=== PATIENT | male | born 1985 | race Caucasian/White ===

== ENCOUNTER 2016-06-24 19:09 | Emergency (ER) ==
[2016-06-24 19:14] VITALS: BP 122/84; TEMP 98.9; BMI 27.4
[2016-06-24] MEDS ORDERED: DECADRON 4 MG/ML SDV IM STA (19:22)
--- NOTE | 2016-06-24 19:24 | ED.PDOC ---
General ED Provider: Dr. ALLEN ARROYO Chief Complaint: Sore Throat Stated Complaint: sore throat, hurting all over, hurts to swallow. Time Seen by Physician: 19:22 Mode of Arrival: Walk-In Information Source: Patient Nursing and Triage Documentation Reviewed and Agree: Yes EENT Complaint Exam - Throat Complaint/Exam Symptoms Are: Still present Timimg: Constant Initial Severity: Mild Current Severity: Mild Aggravating: Reports: Eating Alleviating: Reports: None Associated Signs and Symptoms: Reports: Dysphagia, Nasal congestion. Denies: Fever, Drooling, Foreign body sensation, Chills, Cough, Wheezing, Hoarseness, Sinus discomfort, Difficulty breathing, Lethargy, Irritability, Decreased activity, Vomiting, Diarrhea, Decreased hearing, Ear drainage Uvula Midline: Yes Diamond-tonsillar Fluctuence: No Stridor Present: No Sinus Tenderness Present: No Tonsillar Hypertrophy Present: No Tonsillar Exudate Present: No Diamond-tonsillar Swelling Present: No Adenopathy Present: No Splenomegaly Present: No Differential Diagnoses: Influenza, Pharyngitis, URI Review of Systems - Review Of Systems Constitutional: Reports: Fever, Weakness Eyes: Reports: No symptoms Ears, Nose, Mouth, Throat: Reports: Throat pain Respiratory: Reports: No symptoms Cardiac: Reports: No symptoms GI: Reports: No symptoms : Reports: No symptoms Musculoskeletal: Reports: No symptoms Skin: Reports: No symptoms Neurological: Reports: No symptoms Endocrine: Reports: No symptoms Hematologic/Lymphatic: Reports: No symptoms All Other Systems: Reviewed and Negative Past Medical History - Past Medical History Previously Healthy: Yes Endocrine: Reports: None Cardiovascular: Reports: None Respiratory: Reports: None Hematological: Reports: None Gastrointestinal: Reports: None Genitourinary: Reports: None Neuro/Psych: Reports: None Musculoskeletal: Reports: None Cancer: Reports: None - Surgical History General Surgical History: Reports: Orthopedic (surgery on leg) - Family History Family History: Reports: None - Social History Smoking Status: Current every day smoker, Light tobacco smoker Smoking Cessation Counseling Time: > 3 min - 10 min Hx Substance Use: No Alcohol Screening: None Physical Exam - Physical Exam Appearance: Well-appearing, No pain distress, Well-nourished Eyes: STEPHAN, EOMI, Conjunctiva clear ENT: Erythema Respiratory: Airway patent, Breath sounds clear, Breath sounds equal, Respirations nonlabored Cardiovascular: RRR, Pulses normal, No rub, No murmur GI/: Soft, Nontender, No masses, Bowel sounds normal, No Organomegaly Musculoskeletal: Normal strength, ROM intact, No edema, No calf tenderness Skin: Warm, Dry, Normal color Neurological: Sensation intact, Motor intact, Reflexes intact, Cranial nerves intact, Alert, Oriented Psychiatric: Affect appropriate, Mood appropriate Critical Care Note - Critical Care Note Total Time (mins): 0 Course - Course Orders, Labs, Meds: Orders Category Date Time Status RAPID FLU A/B Stat LAB 06/24/16 19:22 Uncollected STREP SCREEN Stat LAB 06/24/16 19:22 Uncollected Dexamethasone 4 mg/ml Inj [Decadron 4 mg/ml Sdv] MEDS 06/24/16 19:22 Stat 4 mg IM ONCE STA Vital Signs: Temp Pulse Resp BP Pulse Ox 06/24/16 19:10 98.9 F 111 H 16 122/84 97 Departure - Departure Time of Disposition: 19:37 Disposition: HOME SELF-CARE Discharge Problem: Acute streptococcal pharyngitis Instructions: Strep Throat (ED) Condition: Good Pt referred to PMD for follow-up: No Additional Instructions: Take medications with food, Increase hydration Tylenol prn Prescriptions: Amoxicillin/Potassium Clav [Augmentin 500-125 mg Tab] 1 tab PO Q12HR #20 tablet Prednisone 10 mg PO BIDWM #14 tablet Allergies/Adverse Reactions: Allergies ciprofloxacin [From Cipro] Adverse Reaction (Verified 06/24/16 19:15) Home Medications: Ambulatory Orders Amoxicillin/Potassium Clav [Augmentin 500-125 mg Tab] 1 tab PO Q12HR #20 tablet 06/24/16 Prednisone 10 mg PO BIDWM #14 tablet 06/24/16 Disposition Discussed With: Patient
[2016-06-24 19:41] LABS: FLU INTERNAL QC INTERNAL QC VALID; RAPID FLU A NEGATIVE (NEGATIVE); RAPID FLU B NEGATIVE (NEGATIVE)
== END 2016-06-24 19:52 | disposition home or self-care (01) ==
LOC: ED 19:09
DX: J02.0 Streptococcal pharyngitis (principal); F17.210 Nicotine dependence, cigarettes, uncomplicated
CPT/HCPCS: 87804; 87880; 96372; 99282

== ENCOUNTER 2016-12-06 11:55 | Emergency (ER) ==
[2016-12-06 11:59] VITALS: BP 133/79; TEMP 98.9; BMI 25.9
--- NOTE | 2016-12-06 12:04 | ED.PDOC ---
General ED Provider: Dr. SOPHIE QUINONEZ Chief Complaint: Foot Pain/Injury Stated Complaint: foot pain Time Seen by Physician: 12:00 Mode of Arrival: Walk-In Information Source: Patient Exam Limitations: No limitations Nursing and Triage Documentation Reviewed and Agree: Yes Musculoskeletal Complaint Exam - Ankle/Foot Complaint/Exam Location of Injury: Reports: Right, Ankle, Foot Mechanism of Injury: Reports: Trauma (BLUNT FORCE ) Onset/Duration: TODAY Symptoms Are: Reports: Still present Onset of Pain: Reports: Immediate Initial Severity: Moderate Current Severity: Moderate Location: Reports: Discrete Character: Reports: Aching, Throbbing, Spasmodic Alleviating: Reports: Rest, Position Aggravating: Reports: Movement, Weight bearing, Prolonged standing Able to Bear Weight: Yes Associated Signs and Symptoms: Reports: Swelling. Denies: Redness, Bruising, Fever, Weakness, Numbness, Tingling Gout Risk Factors: Reports: None Related Surgical History: Reports: None Lower Extremity Findings: Present: Swelling Achilles Tendon Abnormality: No Tenderness: Present: Midfoot, Metatarsals, Digits Limited Range of Motion: Present: Plantarflexion Differential Diagnosis: Closed Fracture Review of Systems - Review Of Systems Constitutional: Reports: No symptoms Eyes: Reports: No symptoms Ears, Nose, Mouth, Throat: Reports: No symptoms Respiratory: Reports: No symptoms Cardiac: Reports: No symptoms GI: Reports: No symptoms : Reports: No symptoms Musculoskeletal: Reports: Joint pain Skin: Reports: No symptoms Neurological: Reports: No symptoms Endocrine: Reports: No symptoms Hematologic/Lymphatic: Reports: No symptoms All Other Systems: Reviewed and Negative Past Medical History - Past Medical History Previously Healthy: Yes Endocrine: Reports: None Cardiovascular: Reports: None Respiratory: Reports: None Hematological: Reports: None Gastrointestinal: Reports: None Genitourinary: Reports: None Neuro/Psych: Reports: None Musculoskeletal: Reports: None Cancer: Reports: None - Surgical History General Surgical History: Reports: Orthopedic (surgery on leg) - Family History Family History: Reports: None - Social History Smoking Status: Current every day smoker, Light tobacco smoker Hx Substance Use: No Alcohol Screening: None Physical Exam - Physical Exam Appearance: Well-appearing, No pain distress, Well-nourished Eyes: STEPHAN, EOMI, Conjunctiva clear ENT: Ears normal, Nose normal, Oropharynx normal Respiratory: Airway patent, Breath sounds clear, Breath sounds equal, Respirations nonlabored Cardiovascular: RRR, Pulses normal, No rub, No murmur GI/: Soft, Nontender, No masses, Bowel sounds normal, No Organomegaly Musculoskeletal: Limited ROM (RIGHT FOOT) Skin: Warm, Dry, Normal color Neurological: Sensation intact, Motor intact, Reflexes intact, Cranial nerves intact, Alert, Oriented Psychiatric: Affect appropriate, Mood appropriate Critical Care Note - Critical Care Note Total Time (mins): 0 Course - Course Orders, Labs, Meds: Orders Category Date Time Status ANKLE, RIGHT MIN 3 VIEWS Stat RADS 12/06/16 12:02 Completed FOOT, RIGHT 3 VIEWS Stat RADS 12/06/16 12:02 Completed KNEE, RIGHT 4 VIEWS Stat RADS 12/06/16 12:03 Completed Vital Signs: Temp Pulse Resp BP Pulse Ox 12/06/16 11:56 98.9 F 82 16 133/79 99 Departure - Departure Time of Disposition: 12:53 Disposition: HOME SELF-CARE Discharge Problem: Injury of foot Foot fracture, right Qualifiers: Encounter type: initial encounter Fracture type: closed Qualified Code(s): S92.901A - Unspecified fracture of right foot, initial encounter for closed fracture Instructions: Toe Fracture (ED), Foot Fracture in Adults (ED) Condition: Good Pt referred to PMD for follow-up: Yes Additional Instructions: Please call your Family Physician as soon as possible to schedule a follow-up appointment. Allergies/Adverse Reactions: Allergies ciprofloxacin [From Cipro] Adverse Reaction (Verified 12/06/16 11:59) Home Medications: Ambulatory Orders 1 [No Reported Medications] 12/06/16 Disposition Discussed With: Patient
--- NOTE | 2016-12-06 12:42 | DI ---
EXAM: Right foot three views HISTORY: Pain COMPARISON: None FINDINGS: There is a mildly displaced, obliquely oriented fracture of the distal diaphysis of the fi fth metatarsal. No dislocation. No focal soft tissue abnormality. IMPERSSION: Mildly displaced fracture distal diaphysis fifth metatarsal. Report faxed at time of dictation.
--- NOTE | 2016-12-06 12:44 | DI ---
EXAM: Right ankle. Three-view HISTORY: Pain COMPARISON: None FINDINGS: No fracture of the tibia or fibula. Ankle mortise is symmetric. Fracture of the distal asp ect fifth metatarsal is incompletely imaged. No focal soft tissue abnormality. IMPERSSION: 1. No fracture of the ankle. 2. Fracture of the distal aspect fifth metatarsal is incompletely imaged. Please see separate report radiograph foot.
--- NOTE | 2016-12-06 12:45 | DI ---
EXAM: Right knee four views HISTORY: Pain COMPARISON: None FINDINGS: No fracture or dislocation. The medial, lateral, and patellofemoral compartments are tatyana l in height. No joint effusion. A 6 mm metallic body projects over the the proximal medial aspect of the tibia. IMPERSSION: 1. No fracture or dislocation. 2. A metallic body projects over the the proximal medial aspect of the tibia. Recommend clinical jesus elation. Report faxed at time of dictation.
== END 2016-12-06 13:10 | disposition home or self-care (01) ==
LOC: ED 11:55
DX: S92.351A Displaced fracture of fifth metatarsal bone, right foot, initial encounter for closed fracture (principal); W22.8XXA Striking against or struck by other objects, initial encounter; F17.210 Nicotine dependence, cigarettes, uncomplicated
CPT/HCPCS: 99283

== ENCOUNTER 2017-02-11 20:57 | Emergency (ER) ==
[2017-02-11 21:00] VITALS: BP 141/101; TEMP 97.6; BMI 26.4
--- NOTE | 2017-02-11 21:50 | ED.PDOC ---
General ED Provider: Dr. GRISELDA PATHAK Chief Complaint: Shortness of Air Stated Complaint: woke up today and felt short of breath coughed up a bunch of stuff clear in color. congestion and runny nose with sore throat. has an inhailer which he used this morning. Time Seen by Physician: 21:48 Mode of Arrival: Walk-In Information Source: Patient Nursing and Triage Documentation Reviewed and Agree: Yes Review of Systems - Review Of Systems Constitutional: Reports: No symptoms Eyes: Reports: No symptoms Ears, Nose, Mouth, Throat: Reports: Nose discharge, Throat pain Respiratory: Reports: Cough, Short of air Cardiac: Reports: No symptoms GI: Reports: No symptoms : Reports: No symptoms Musculoskeletal: Reports: No symptoms Skin: Reports: No symptoms Neurological: Reports: No symptoms Endocrine: Reports: No symptoms Hematologic/Lymphatic: Reports: No symptoms All Other Systems: Reviewed and Negative Past Medical History - Past Medical History Previously Healthy: Yes Endocrine: Reports: None Cardiovascular: Reports: None Respiratory: Reports: None Hematological: Reports: None Gastrointestinal: Reports: None Genitourinary: Reports: None Neuro/Psych: Reports: None Musculoskeletal: Reports: None Cancer: Reports: None - Surgical History General Surgical History: Reports: Orthopedic (surgery on leg) - Family History Family History: Reports: None - Social History Smoking Status: Current every day smoker, Light tobacco smoker Hx Substance Use: No Alcohol Screening: None Physical Exam - Physical Exam Appearance: Ill-appearing Ill-appearing: Mild Pain Distress: Mild Eyes: STEPHAN, EOMI, Conjunctiva clear ENT: Ears normal, Nose normal, Oropharynx normal Respiratory: Airway patent, Breath sounds clear, Breath sounds equal, Respirations nonlabored Cardiovascular: RRR, Pulses normal, No rub, No murmur GI/: Soft, Nontender, No masses, Bowel sounds normal, No Organomegaly Musculoskeletal: Normal strength, ROM intact, No edema, No calf tenderness Skin: Warm, Dry, Normal color Neurological: Sensation intact, Motor intact, Alert, Oriented Psychiatric: Anxious Critical Care Note - Critical Care Note Total Time (mins): 0 Course - Course Vital Signs: Temp Pulse Resp BP Pulse Ox 02/11/17 20:57 97.6 F 91 H 18 141/101 H 98 Departure - Departure Time of Disposition: 21:50 Disposition: HOME SELF-CARE Discharge Problem: URI (upper respiratory infection) Qualifiers: URI type: unspecified viral URI Qualified Code(s): J06.9 - Acute upper respiratory infection, unspecified Instructions: Upper Respiratory Infection (ED) Condition: Fair Pt referred to PMD for follow-up: Yes Additional Instructions: Stop smoking Take Medications if symptoms get worse. Prescriptions: Azithromycin [Zithromax] 250 mg PO DIRECTED #6 tablet Methylprednisolone [Medrol Dosepak] 4 mg PO DIRECTED #1 pkg Allergies/Adverse Reactions: Allergies ciprofloxacin [From Cipro] Adverse Reaction (Verified 02/11/17 21:00) Home Medications: Ambulatory Orders Azithromycin [Zithromax] 250 mg PO DIRECTED #6 tablet 02/11/17 Methylprednisolone [Medrol Dosepak] 4 mg PO DIRECTED #1 pkg 02/11/17 Disposition Discussed With: Patient, Family
== END 2017-02-11 21:59 | disposition home or self-care (01) ==
LOC: ED 20:57
DX: J06.9 Acute upper respiratory infection, unspecified (principal); F17.210 Nicotine dependence, cigarettes, uncomplicated
CPT/HCPCS: 99282

== ENCOUNTER 2018-04-16 11:13 | Outpatient (CLI) | payer OTHER | END 2018-04-16 11:14 | disposition home or self-care (01) | LOC: RHC-LAB 11:13 → FCC-LAB 11:14 | PROVIDERS: ATTEND Nurse Practitioner Family | DX: S21.202A Unspecified open wound of left back wall of thorax without penetration into thoracic cavity, initial encounter (principal) | CPT/HCPCS: 87070; 87186 ==